=== PATIENT | female | born 1955 | race Two or more races ===

== ENCOUNTER 2021-12-15 20:35 | Emergency (ER) | payer OTHER ==
[~2021-12-15] VITALS: Ht 157.5 cm; Wt 72.6 kg
[2021-12-15] MEDS ORDERED: NORVASC2.5 M1 PO (20:52)
== END 2021-12-15 21:51 | disposition home or self-care (01) ==
LOC: ER 20:35
DX: S51.811A Laceration without foreign body of right forearm, initial encounter (principal); W45.8XXA Other foreign body or object entering through skin, initial encounter; Y93.9 Activity, unspecified; Y92.9 Unspecified place or not applicable; Y99.9 Unspecified external cause status

== ENCOUNTER 2021-12-22 10:47 | Emergency (ER) | payer OTHER ==
[~2021-12-22] VITALS: Ht 157.5 cm; Wt 72.6 kg
[~2021-12-22 10:47] MED LIST: NORVASC2.5 M1 PO
[2021-12-22] MEDS ORDERED: CALCIUM 600 MG1 EA10 PO (11:40)
== END 2021-12-22 15:38 | disposition home or self-care (01) ==
LOC: ER 10:47
DX: L03.113 Cellulitis of right upper limb (principal)

== ENCOUNTER 2025-02-09 16:14 | Inpatient (IN) | payer OTHER ==
[~2025-02-09] VITALS: Ht 152.4 cm; Wt 71.7 kg
[~2025-02-09 16:14] MED LIST changes: +CALCIUM 600 MG1 EA10 PO
[2025-02-09 19:55] LABS: BASO % 0.4 % (0.1-1.2); EOS # 0.04 (0.04-0.54); EOS % 0.2 % (0.7-7.0); HEMATOCRIT 35.9 % (34.1-44.9); HEMOGLOBIN 12.4 g/dL (11.2-15.7); LYMPH # 1.14 (1.18-3.74); LYMPH % 5.4 % (19.3-53.1); MEAN CORPUSCULAR HEMOGLOBIN 29.6 pg (25.6-32.2); MONO # 1.47 (0.24-0.82); NEUT # 17.59 (1.56-6.13); NEUT % 83.3 % (34.0-71.1); PLATELET COUNT 341 K/uL (163-369); RED BLOOD COUNT 4.19 M/uL (3.93-5.22); RED CELL DISTRIBUTION WIDTH 13.7 % (11.6-14.4)
[2025-02-09 20:15] LABS: INR 1.12; PARTIAL THROMBOPLASTIN TIME 37.7 SECONDS (22.0-34.0); PROTHROMBIN TIME 12.1 SECONDS (9.0-11.5)
[2025-02-09 20:55] LABS: CALCIUM 10.4 mg/dL (8.5-10.1); POTASSIUM 3.96 mEq/L (3.5-5.1)
[2025-02-09 20:57] LABS: CREATININE SERUM 1.4 mg/dL (0.55-1.02); GFR 37.28
[2025-02-10 06:11] LABS: PH,URINE 5.5 (5.0-8.0); URINE BILIRRUBIN Small (NEGATIVE); URINE BLOOD Large; URINE COLOR Dark Yellow; URINE GLUCOSE Negative (NEGATIVE); URINE KETONE Trace (NEGATIVE); URINE LEUKOCYTE Large; URINE NITRATE Negative
[2025-02-10 06:15] LABS: URINE BACTERIA 3624.1 uL (0.0-1933); URINE CAST 10.45 uL (0.0-1.40); URINE EPITHELIAL CELLS 112.5 uL (0.0-38.8); URINE RBC 110.1 uL (0.0-20.8); URINE WBC 468.4 uL (0.0-23.2)
[2025-02-10 06:25] LABS: URINE APPEARANCE CLOUDY; URINE PROTEIN 100 (NEGATIVE)
[2025-02-10 06:27] LABS: TYPE CELLS SQUAMOUS; URINE CRYSTALS FEW /HPF
[2025-02-10] MEDS ORDERED: 0.9 % SODIUM CHLORIDE 1,000 ML IV STA (08:19)
[2025-02-10] MEDS ORDERED: CEFTRIAXONE SODIUM 2,000 MG VIAL IV STA (08:23)
[2025-02-10] MEDS ORDERED: TRAMADOL HCL 50 MG TABLET PO STA (08:25)
[2025-02-10] MEDS ORDERED: CEFTRIAXONE SODIUM 2,000 MG VIAL ONE (10:30)
[2025-02-10] MEDS ORDERED: FAMOTIDINE/PF 20 MG in 0.9 % SODIUM CHLORIDE 8 ML IV PUSH SCH (17:21)
[2025-02-10] MEDS ORDERED: ENOXAPARIN SODIUM 40 MG/0.4 ML SYRINGE SUBCUTANEO SCH (17:21)
[2025-02-10] MEDS ORDERED: ONDANSETRON HCL 4 MG in 0.9 % SODIUM CHLORIDE 50 ML IV PRN (17:30)
[2025-02-10] MEDS ORDERED: KETOROLAC TROMETHAMINE 15 MG VIAL IU ONE (17:30)
[2025-02-10] MEDS ORDERED: 0.9 % SODIUM CHLORIDE 1,000 ML IV SCH (17:30)
[2025-02-10] MEDS ORDERED: ACETAMINOPHEN 500 MG GEL..CAP PO PRN (17:30)
[2025-02-10] MEDS ORDERED: PIPERACILLIN/TAZOBACTAM SODIUM 2.25 GM in DEXTROSE 5 % IN WATER 50 ML IV SCH (18:00)
[2025-02-10 19:05] LABS: COVID-19 AG NEGATIVE (NEGATIVE)
[2025-02-10] MEDS ORDERED: ACETAMINOPHEN 500 MG GEL..CAP PO ONE (19:36)
[2025-02-10] MEDS ORDERED: KETOROLAC TROMETHAMINE 30 MG VIAL ONE (19:36)
[2025-02-10] MEDS ORDERED: ONDANSETRON HCL 2 MG/ML VIAL ONE (19:37)
[2025-02-10] MEDS ORDERED: ENOXAPARIN SODIUM 40 MG/0.4 ML SYRINGE SUBCUTANEO ONE (19:37)
[2025-02-10] MEDS ORDERED: PIPERACILLIN/TAZOBACTAM SODIUM 3.375 GM VIAL IV ONE (19:37)
[2025-02-10] MEDS ORDERED: FAMOTIDINE/PF 20 MG/2 ML VIAL ONE (19:38)
[2025-02-10 20:56] VITALS: BP 127/77
[2025-02-11 02:21] VITALS: BP 96/61; O2SAT 98
[2025-02-11] MEDS ORDERED: AMLODIPINE BESYLATE 2.5 MG TABLET PO SCH (09:00)
[2025-02-11 09:08] VITALS: BP 106/64; O2SAT 97
[2025-02-11 16:50] VITALS: BP 115/72
[2025-02-11] MEDS ORDERED: LACTOBACILLUS ACIDOPHILUS 1 CAP CAP PO SCH (17:00)
[2025-02-11] MEDS ORDERED: LINEZOLID 600 MG TABLET PO SCH (17:00)
[2025-02-12 01:08] VITALS: BP 93/60; O2SAT 97
[2025-02-12 06:34] LABS: BASO % 0.4 % (0.1-1.2); EOS # 0.12 (0.04-0.54); EOS % 0.5 % (0.7-7.0); HEMATOCRIT 29.1 % (34.1-44.9); LYMPH # 1.89 (1.18-3.74); LYMPH % 7.4 % (19.3-53.1); MEAN CORPUSCULAR HEMOGLOBIN 29.3 pg (25.6-32.2); MONO # 1.86 (0.24-0.82); MONO % 7.3 % (4.7-12.5); NEUT # 20.68 (1.56-6.13); NEUT % 80.9 % (34.0-71.1); PLATELET COUNT 362 K/uL (163-369); RED BLOOD COUNT 3.35 M/uL (3.93-5.22); RED CELL DISTRIBUTION WIDTH 14.1 % (11.6-14.4)
[2025-02-12 06:45] LABS: HEMOGLOBIN 9.8 g/dL (11.2-15.7)
[2025-02-12 07:37] LABS: ALBUMIN 1.8 gm/dL (3.4-5.0); BILIRUBIN TOTAL 0.51 mg/dL (0.3-1.2); CREATININE SERUM 0.67 mg/dL (0.55-1.02); GFR 87.27; GLOBULINA 3.7 G/DL (2.4-3.5); MAGNESIUM 2.2 mg/dL (1.8-2.4); PHOSPHOROUS 3.7 mg/dL (2.5-4.9); POTASSIUM 4.39 mEq/L (3.5-5.1); TOTAL PROTEIN 5.5 gm/dL (6.4-8.2)
[2025-02-12 08:54] VITALS: BP 112/63; O2SAT 96
[2025-02-12] MEDS ORDERED: POLYETHYLENE GLYCOL 3350 17 GM BLIST.PACK PO SCH (09:00)
[2025-02-12] MEDS ORDERED: VANCOMYCIN HCL 1,000 MG VIAL IV SCH (17:00)
[2025-02-12 17:26] VITALS: BP 134/78
[2025-02-12] MEDS ORDERED: FAMOtidine 20 MG TABLET PO SCH (21:00)
[2025-02-13 02:14] VITALS: BP 126/71; O2SAT 96
[2025-02-13 07:31] LABS: BASO % 0.4 % (0.1-1.2); EOS # 0.14 (0.04-0.54); EOS % 0.6 % (0.7-7.0); HEMATOCRIT 27.8 % (34.1-44.9); HEMOGLOBIN 9.6 g/dL (11.2-15.7); LYMPH # 1.95 (1.18-3.74); LYMPH % 8.3 % (19.3-53.1); MEAN CORPUSCULAR HEMOGLOBIN 29.6 pg (25.6-32.2); MONO # 1.53 (0.24-0.82); MONO % 6.5 % (4.7-12.5); NEUT # 18.57 (1.56-6.13); NEUT % 79.5 % (34.0-71.1); PLATELET COUNT 399 K/uL (163-369); RED BLOOD COUNT 3.24 M/uL (3.93-5.22); RED CELL DISTRIBUTION WIDTH 13.7 % (11.6-14.4)
[2025-02-13 08:12] VITALS: BP 120/74; O2SAT 94
[2025-02-13 08:14] LABS: ALBUMIN 1.8 gm/dL (3.4-5.0); BILIRUBIN TOTAL 0.4 mg/dL (0.3-1.2); CALCIUM 8.8 mg/dL (8.5-10.1); CREATININE SERUM 0.54 mg/dL (0.55-1.02); GFR 111.94; GLOBULINA 3.7 G/DL (2.4-3.5); MAGNESIUM 1.8 mg/dL (1.8-2.4); PHOSPHOROUS 3.4 mg/dL (2.5-4.9); POTASSIUM 4.2 mEq/L (3.5-5.1); TOTAL PROTEIN 5.5 gm/dL (6.4-8.2)
[2025-02-13 08:16] LABS: C-REACTIVE PROTEIN 19.3 MG/DL (0.00-0.29)
[2025-02-13] MEDS ORDERED: TRAMADOL HCL 50 MG TABLET PO PRN (09:15)
[2025-02-13 16:00] VITALS: BP 148/78; O2SAT 98
[2025-02-13 18:45] LABS: ob NEGATIVE (NEGATIVE)
[2025-02-14 01:57] VITALS: BP 142/73; O2SAT 95
[2025-02-14 09:34] VITALS: BP 147/78; O2SAT 98
[2025-02-15 01:51] VITALS: BP 152/84; O2SAT 98
[2025-02-15 06:22] LABS: BASO % 0.4 % (0.1-1.2); EOS # 0.13 (0.04-0.54); EOS % 0.6 % (0.7-7.0); HEMATOCRIT 29.3 % (34.1-44.9); HEMOGLOBIN 9.9 g/dL (11.2-15.7); LYMPH # 1.91 (1.18-3.74); LYMPH % 9.4 % (19.3-53.1); MEAN CORPUSCULAR HEMOGLOBIN 29.3 pg (25.6-32.2); MONO # 1.01 (0.24-0.82); NEUT % 80.8 % (34.0-71.1); PLATELET COUNT 474 K/uL (163-369); RED BLOOD COUNT 3.38 M/uL (3.93-5.22); RED CELL DISTRIBUTION WIDTH 13.6 % (11.6-14.4)
[2025-02-15 06:44] LABS: ERYTHROCYTE SEDIMENTATION RATE > 130 mm/hr (0-30)
[2025-02-15 07:09] LABS: ALBUMIN 1.8 gm/dL (3.4-5.0); BILIRUBIN TOTAL 0.46 mg/dL (0.3-1.2); CALCIUM 8.9 mg/dL (8.5-10.1); CREATININE SERUM 0.55 mg/dL (0.55-1.02); GFR 109.59; GLOBULINA 4.1 G/DL (2.4-3.5); POTASSIUM 4.57 mEq/L (3.5-5.1); TOTAL PROTEIN 5.9 gm/dL (6.4-8.2)
[2025-02-15 07:14] LABS: C-REACTIVE PROTEIN 14.4 MG/DL (0.00-0.29)
[2025-02-15 08:45] VITALS: BP 134/76; O2SAT 98
[2025-02-15] MEDS ORDERED: AMINO ACIDS 1 EACH TABLET PO SCH (09:00)
[2025-02-15 15:50] VITALS: BP 141/78
[2025-02-15] MEDS ORDERED: METHYLPREDNISOLONE SOD SUCC 40 MG VIAL IV SCH (17:00)
[2025-02-15] MEDS ORDERED: VANCOMYCIN HCL 5 MG/ML REDILUIDO IV SCH (17:00)
[2025-02-16 01:14] VITALS: BP 136/74; O2SAT 95
[2025-02-16 08:49] VITALS: BP 164/80; O2SAT 100
[2025-02-16 13:08] LABS: COMPLEMENT C3 189 mg/dL (82-167); COMPLEMENT C4 49 mg/dL (12-38); DNA AB DOUBLE STRABDED < 1 IU/mL (0-9)
[2025-02-16 16:34] VITALS: BP 142/73; O2SAT 97
[2025-02-17 01:53] VITALS: BP 173/79; O2SAT 96
[2025-02-17 06:45] LABS: BASO % 0.2 % (0.1-1.2); EOS # 0.01 (0.04-0.54); EOS % 0.1 % (0.7-7.0); LYMPH # 1.87 (1.18-3.74); LYMPH % 10.5 % (19.3-53.1); MEAN CORPUSCULAR HEMOGLOBIN 29.8 pg (25.6-32.2); MONO # 0.74 (0.24-0.82); MONO % 4.1 % (4.7-12.5); NEUT # 14.92 (1.56-6.13); NEUT % 83.5 % (34.0-71.1); PLATELET COUNT 594 K/uL (163-369); RED BLOOD COUNT 2.95 M/uL (3.93-5.22)
[2025-02-17 06:56] LABS: HEMATOCRIT 25.4 % (34.1-44.9); HEMOGLOBIN 8.8 g/dL (11.2-15.7)
[2025-02-17 07:21] LABS: CALCIUM 8.6 mg/dL (8.5-10.1); CREATININE SERUM 0.62 mg/dL (0.55-1.02); GFR 95.44; MAGNESIUM 2.1 mg/dL (1.8-2.4); POTASSIUM 4.43 mEq/L (3.5-5.1)
[2025-02-17] MEDS ORDERED: VITAMIN B COMPLEX 1 EACH PO SCH (09:00)
[2025-02-17] MEDS ORDERED: SOD FERRIC GLUC COMPLX/SUCROSE 62.5 MG in 0.9 % SODIUM CHLORIDE 50 ML IV SCH (09:00)
[2025-02-17] MEDS ORDERED: PANTOPRAZOLE SODIUM 40 MG TABLET.DR PO SCH (09:00)
[2025-02-17] MEDS ORDERED: CYANOCOBALAMIN (VITAMIN B-12) 1,000 MCG/ML VIAL IM SCH (09:00)
[2025-02-17 09:04] VITALS: BP 150/74; O2SAT 95
[2025-02-17 15:34] LABS: ob NEGATIVE (NEGATIVE)
[2025-02-17 17:26] VITALS: BP 128/66; O2SAT 96
[2025-02-17] MEDS ORDERED: CEFTRIAXONE SODIUM 2,000 MG VIAL IV SCH (21:00)
[2025-02-17] MEDS ORDERED: FAMOtidine 20 MG TABLET PO SCH (21:00)
[2025-02-18 01:47] VITALS: BP 149/62; O2SAT 95
[2025-02-18] MEDS ORDERED: CELEBREX200MG PO (08:43)
[2025-02-18] MEDS ORDERED: METHYLPREDNISOLONE SOD SUCC 40 MG VIAL IV SCH (09:00)
[2025-02-18 10:44] VITALS: BP 154/73; O2SAT 95
[2025-02-18] MEDS ORDERED: DIPHENHYDRAMINE HCL 50 MG/ML VIAL 1ML IV NR (13:00)
[2025-02-18] MEDS ORDERED: fentaNYL CITRATE 50 MCG/ML AMPUL IV PUSH NR (13:00)
[2025-02-18] MEDS ORDERED: MIDAZOLAM HCL 2 MG/2 ML VIAL IV NR (13:00)
[2025-02-18 16:26] VITALS: BP 139/68; O2SAT 97
[2025-02-19 00:45] VITALS: BP 135/70; O2SAT 98
[2025-02-19 05:25] LABS: BASO % 0.4 % (0.1-1.2); EOS % 1.2 % (0.7-7.0); HEMATOCRIT 29.8 % (34.1-44.9); LYMPH # 1.99 (1.18-3.74); LYMPH % 11.6 % (19.3-53.1); MEAN CORPUSCULAR HEMOGLOBIN 29.4 pg (25.6-32.2); MONO # 1.03 (0.24-0.82); NEUT # 13.71 (1.56-6.13); NEUT % 80.1 % (34.0-71.1); RED BLOOD COUNT 3.43 M/uL (3.93-5.22); RED CELL DISTRIBUTION WIDTH 14.4 % (11.6-14.4)
[2025-02-19 05:30] LABS: HEMOGLOBIN 10.1 g/dL (11.2-15.7); PLATELET COUNT 793 K/uL (163-369)
[2025-02-19 05:46] LABS: CALCIUM 8.9 mg/dL (8.5-10.1); CREATININE SERUM 0.62 mg/dL (0.55-1.02); GFR 95.44; MAGNESIUM 1.9 mg/dL (1.8-2.4); POTASSIUM 4.37 mEq/L (3.5-5.1)
[2025-02-19] MEDS ORDERED: MONDOXYNE NL100 MG PO (08:06)
[2025-02-19] MEDS ORDERED: ACIDOPHILUS1 EAC3 PO (08:07)
[2025-02-19] MEDS ORDERED: MEDROLPACK PO (08:07)
[2025-02-19] MEDS ORDERED: PEPCID AC20 MG PO (08:09)
[2025-02-19] MEDS ORDERED: PROTONIX40 MG PO (08:09)
[2025-02-19 08:42] VITALS: BP 152/78; O2SAT 96
== END 2025-02-19 09:42 | disposition home or self-care (01) | DRG 872 ==
LOC: ER 16:37 → MEDI 02-10 17:32
PROVIDERS: Emergency Medicine; General Practice; Internal Medicine Infectious Disease; ADMIT Internal Medicine; ATTEND Internal Medicine
PROC: B54DZZZ Ultrasonography of Bilateral Lower Extremity Veins (ICD-10-PCS; principal; 2025-02-09)
PROC: B44GZZZ Ultrasonography of Left Lower Extremity Arteries (ICD-10-PCS; 2025-02-09)
PROC: BW21ZZZ Computerized Tomography (CT Scan) of Abdomen and Pelvis (ICD-10-PCS; 2025-02-10)
PROC: BQ3MZZZ Magnetic Resonance Imaging (MRI) of Left Foot (ICD-10-PCS; 2025-02-12)
PROC: 0DJD8ZZ Inspection of Lower Intestinal Tract, Via Natural or Artificial Opening Endoscopic (ICD-10-PCS; 2025-02-18)
DX: A41.9 Sepsis, unspecified organism (principal); L03.116 Cellulitis of left lower limb; N17.8 Other acute kidney failure; N39.0 Urinary tract infection, site not specified; D72.828 Other elevated white blood cell count; M79.89 Other specified soft tissue disorders; I10 Essential (primary) hypertension; D64.9 Anemia, unspecified

== ENCOUNTER 2025-04-29 08:55 | Outpatient (CLI) | payer OTHER ==
[~2025-04-29 08:55] MED LIST changes: +ACIDOPHILUS1 EAC3 PO; +CELEBREX200MG PO; +MEDROLPACK PO; +MONDOXYNE NL100 MG PO; +PEPCID AC20 MG PO; +PROTONIX40 MG PO
== END 2025-04-29 09:08 | disposition home or self-care (01) ==
LOC: MRI 08:55
PROVIDERS: ATTEND Neuromusculoskeletal Medicine & OMM
DX: R41.3 Other amnesia (principal); I72.9 Aneurysm of unspecified site; I65.1 Occlusion and stenosis of basilar artery; I65.09 Occlusion and stenosis of unspecified vertebral artery; I65.29 Occlusion and stenosis of unspecified carotid artery; Q28.2 Arteriovenous malformation of cerebral vessels
CPT/HCPCS: 70544; 70553; Q9965

== ENCOUNTER 2025-05-03 09:45 | Outpatient (CLI) | payer OTHER | END 2025-05-03 09:49 | disposition home or self-care (01) | LOC: NUCLEAR 09:45 | PROVIDERS: ATTEND Family Medicine Geriatric Medicine | DX: I70.203 Unspecified atherosclerosis of native arteries of extremities, bilateral legs (principal); I70.223 Atherosclerosis of native arteries of extremities with rest pain, bilateral legs ==

== ENCOUNTER → 2025-05-07 07:20 | Outpatient (CLI) | payer OTHER | END | disposition home or self-care (01) | LOC: NUCLEAR 07:20 | PROVIDERS: ATTEND Internal Medicine Rheumatology | DX: M15.4 Erosive (osteo)arthritis (principal); M06.4 Inflammatory polyarthropathy; M06.9 Rheumatoid arthritis, unspecified | CPT/HCPCS: 78315; A9503 ==

== ENCOUNTER 2025-05-20 08:37 | Outpatient (CLI) | payer OTHER | END 2025-05-20 08:42 | disposition home or self-care (01) | LOC: SONOGRAMA 08:37 | PROVIDERS: ATTEND Neuromusculoskeletal Medicine & OMM | DX: E04.1 Nontoxic single thyroid nodule (principal) ==

== ENCOUNTER 2025-07-19 09:33 | Outpatient (CLI) | payer OTHER | END 2025-07-19 09:41 | disposition home or self-care (01) | LOC: RAD 09:33 | PROVIDERS: ATTEND Surgery Surgery of the Hand | DX: M15.0 Primary generalized (osteo)arthritis (principal); M67.843 Other specified disorders of tendon, right hand ==